=== PATIENT | female | born 1955 | race Two or more races ===

== ENCOUNTER 2020-10-25 05:15 | Day surgery (SDC) | payer OTHER ==
[~2020-10-25 05:15] MED LIST: BUSPIRONE HCL30 MG PO; CLONAZEPAM2 M1 PO; COZAAR100 MG PO; HYDROCHLOROTH12.5 MG PO; REPATHA PU420 MG/3.5 SUBCUTANEO; SERTRALINE HCL100 MG PO; TEMAZEPAM15 MG PO
== END 2020-10-25 10:55 | disposition home or self-care (01) ==
LOC: CIR.AMB 05:15
PROVIDERS: ATTEND Colon & Rectal Surgery
DX: T85.111A Breakdown (mechanical) of implanted electronic neurostimulator of peripheral nerve electrode (lead), initial encounter (principal); R15.9 Full incontinence of feces; Z20.828 Contact with and (suspected) exposure to other viral communicable diseases
CPT/HCPCS: 64590; 64581; 95972; C1778; L8679